=== PATIENT | female | born 1995 | race Caucasian/White ===

== ENCOUNTER 2018-11-18 13:58 | Emergency (ER) | payer OTHER ==
[2018-11-18] MEDS: KETOROLAC 60 MG INJ IM (15:30)
[2018-11-18] MEDS: DIPHTH/TET/ACEL PERTUSS (ADULT) 0.5 ML VIAL IM* (15:30)
[2018-11-18] MEDS: LIDOCAINE 2%/EPI MPF (SDV) 20 ML VIAL INJ (16:25)
== END 2018-11-18 17:55 | disposition home or self-care (01) ==
LOC: FTE 13:58
DX: S01.511A Laceration without foreign body of lip, initial encounter (principal); S01.81XA Laceration without foreign body of other part of head, initial encounter; W54.0XXA Bitten by dog, initial encounter; Y92.9 Unspecified place or not applicable; Z23 Encounter for immunization
CPT/HCPCS: 12011; 81025; 90471; 90715; 96372; 99284-25